=== PATIENT | female | born 1990 | race African-American/Black ===

== ENCOUNTER 2018-06-05 10:09 | Emergency (ER) | payer OTHER ==
[~2018-06-05] VITALS: Ht 152.4 cm; Wt 86.2 kg
--- OUTSIDE RECORDS SUMMARY | 2018-06-05 10:12 | XMS REPORT | Clinical Summary ---
Author Author [facility] Address Unknown Phone Unavailable Care Team Providers Care Sales Producer Name Role Phone Elisabeth Huntleye Wang PCP Allergies No Known Allergies Medications End Date Status Medication Sig Dispensed Refills Start Date Active ibuprofen (ADVIL,MOTRIN) Take 800 mg 0 800 MG tablet by mouth as needed for Pain. Active acetaminophen-codeine Take 1 tablet 0 (TYLENOL #3) 300-30 mg by mouth per tablet every 4 (four) hours as needed for Pain. Active amoxicillin (AMOXIL) 250 Take 250 mg 0 MG capsule by mouth 3 (three) times daily. Active Problems Not on file Social History Date Tobacco Use Types Packs/Day Years Used Current Some Day Smoker Smokeless Tobacco: Never Used Alcohol Use Drinks/Week oz/Week Comments Yes Sex Assigned at Date Recorded Not on file Industry Job Start Date Occupation Not on file Not on file Not on file Travel End Travel History Travel Start No recent travel history available. Last Filed Vital Signs Not on file Plan of Treatment Not on file Results Not on fileafter 06/04/2017 Insurance Payer Benefit Subscriber ID Type Phone Address Plan / Group MEDICAID - MEDICAID MGD MEDICAID xxxxxxxxx Medicaid [employer] Non-Contra cted (Home) [place] [address]
--- OUTSIDE RECORDS SUMMARY | 2018-06-05 10:12 | XMS REPORT ---
Author [facility] Address Unknown Phone Unavailable Care Team Providers Care Vp Informatics Name Role Phone GERMANIA BLANCO Unavailable Unavailable Payers Payer Name Policy Type Policy Number Effective Date Expiration Date Problems This patient has no known problems. Allergies, Adverse Reactions, Alerts Allergy Name Allergy Type Status Severity Reaction(s) Onset Date Inactive Date Treating Clinician Comments No Known Allergies DA Active U 2017-02-12 00:00:00 Medications This patient has no known medications. Results Test Description Test Time Test Comments Text Results Atomic Results Result Comments WET PREP 2016-10-03 03:08:00 WBC WET PREP (BEAKER) (test txoq=067) Many white blood cells seen CLUE CELLS (BEAKER) (test fcnn=848) No clue cells seen YEAST WET PREP (BEAKER) (test knzj=584) No budding yeast seen TRICH WET PREP (BEAKER) (test kozt=154) No Trichomonas seen BACT WET PREP (BEAKER) (test ziar=416) Moderate bacteria seen RAPID STREP A [id number] 01:12:00* Test Item Value Reference Range Comments STREP A ANTIGEN (BEAKER) (test qyow=653) Positive Negative
--- OUTSIDE RECORDS SUMMARY | 2018-06-05 10:12 | XMS REPORT | Continuity of Care Document ---
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 Name Role Phone MD Andrew, Gracie LIMA Unavailable Insurance Providers Payer name Policy type / Coverage type Policy ID Covered constitution party ID Policy [place] [employer] ([employer]IC [facility] [employer] (MEDIC Encounters Encounter Performer Location Date Office Visit Gracie Morales MD [facility] June 21, 2014 Problems Problem Effective Dates Problem Status BACK PAIN, LOW June 21, 2014 Active RASH NOS June 21, 2014 Active Procedures Date Description Comments June 21, 2014 smoking status Never smoker Medications Medication Instructions Start Date Status CYCLOBENZAPRINE HCL 10 MG TABS 1 tablet at night as needed for spasms June 21, 2014 Active MELOXICAM 15 MG TABS 1 tablet daily as needed for pain June 21, 2014 Active TRAMADOL HCL 50 MG TABS 1 tablet every 8 hours as needed for pain June 21, 2014 Active LOTRISONE 1-0.05 % CREA apply to affected area twice daily as needed June 21, 2014 Active Vital Signs Date Description Test Result June 21, 2014 height E&M - 8302-2 HEIGHT 61 in June 21, 2014 weight E&M - 3141-9 WEIGHT 227 lb June 21, 2014 temperature E&M TEMPERATURE 98.3 deg f June 21, 2014 pulse rate E&M - 8867-4 PULSE RATE 84 /min June 21, 2014 blood pressure, systolic - 8480-6 BP SYSTOLIC 127 mm Hg June 21, 2014 blood pressure, diastolic - 8462-4 BP DIASTOLIC 86 mm Hg
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
--- OUTSIDE RECORDS SUMMARY | 2018-06-05 10:12 | XMS REPORT | Summary of Care ---
Author Author MADAI LEE N.P. Organization Unknown Address Unknown Phone Unavailable Care Team Providers Care Um Nurse Name Role Phone MADAI LEE N.P. Unavailable Unavailable ANASTASIA BROWN M.D. Unavailable Unavailable ANASTASIA BROWN MD Unavailable Unavailable MADAI OQUENDO Unavailable Unavailable Unavailable Unavailable Functional Status Name Dates Details Functional status health issues are not documented Status: Name Dates Details Cognitive status health issues are not documented Status: Problems Name Dates Details Tinea capitis (110.0, B35.0) Status: Active Hirsutism (704.1, L68.0) Status: Active Screen for STD (sexually transmitted disease) (V74.5, Z11.3) Status: Active Overweight and obesity (278.02, E66.3) Status: Active Seizure (780.39, R56.9) Status: Active Paranoia (297.1, F22) Status: Active Major depressive disorder, recurrent episode with anxious distress (296.30, F33.9) Status: Active Medications Name Dates Details buPROPion HCl ER (XL) 150 MG Oral Tablet Extended Release 24 Hour Active risperiDONE 0.5 MG Oral Tablet TAKE 1 TABLET BY MOUTH AT BEDTIME * Quantity: 30 Refills: 1 ANASTASIA BROWN M.D. * Start : 28-May-2018 Active traZODone HCl - 50 MG Oral Tablet TAKE 1 TABLET BY MOUTH AT BEDTIME * Quantity: 30 Refills: 1 ANASTASIA BROWN M.D. * Start : 28-May-2018 Active Ketoconazole 2 % External Shampoo APPLY TO AFFECTED AREA(S) ONCE DAILY DIRECTED. * Quantity: 2 Refills: 1 MADAI LEE N.P. * Start : 01-Jun-2018 Active 120 ML Bottle Allergies and Adverse Reactions Name Dates Details No Known Drug Allergies (Allergy) Status: Active Past Medical History Name Dates Details History of anxiety (V11.8, Z86.59) Status: Resolved History of depression (V11.8, Z86.59) Status: Resolved History of diabetes mellitus (V12.29, Z86.39) Status: Resolved History of seizure (V12.49, Z87.898) Status: Resolved Procedures Procedure Dates Details [QLH] CBC (INCLUDES DIFF/PLT) Date: 01-Jun-2018 [QLH] CMP W/EGFR Date: 01-Jun-2018 [QH] LIPID PANEL WITH REFLEX TO DIRECT LDL Date: 01-Jun-2018 [QLH] TSH, 3RD GENERATION W/REFLEX TO FT4 Date: 01-Jun-2018 [QLH] HEMOGLOBIN A1c Date: 01-Jun-2018 [L] UA/M w/rflx Culture, Comp Date: 01-Jun-2018 [QH] HIV AB, HIV 1/2, EIA, WITH REFLEXES Date: 01-Jun-2018 [LH] GC/CT by Amp Det (APTIMA) Date: 01-Jun-2018 [QLH] RPR Date: 01-Jun-2018 [QLH] HEPATITIS C ANTIBODY Date: 01-Jun-2018 [QLH] HEPATITIS B SURFACE ANTIBODY (QUANT) Date: 01-Jun-2018 [QH] HEPATITIS B SURFACE ANTIGEN W/REFL CONFIRM Date: 01-Jun-2018 [QLH] TESTOSTERONE, TOTAL Date: 01-Jun-2018 [QLH] DHEA SULFATE Date: 01-Jun-2018 [QL] FSH AND LH Date: 01-Jun-2018 [QLH] ESTRADIOL Date: 01-Jun-2018 [QLH] PROGESTERONE Date: 01-Jun-2018 History of No history of surgery Completed Immunization Name Dates Details Immunizations not documented Family History Name Dates Details Family history of diabetes mellitus (V18.0, Z83.3) Status: Active Family history of malignant neoplasm of breast (V16.3, Z80.3) Status: Active Name Dates Details Family history of essential hypertension (V17.49, Z82.49) Status: Active Family history of diabetes mellitus (V18.0, Z83.3) Status: Active Family history of malignant neoplasm of breast (V16.3, Z80.3) Status: Active Social History Name Dates Details Unknown if ever smoked Vital Signs Date Test Result Details [id number] BP Systolic 107 mm[Hg] Status: Comments: Location: LUE; Position: Sitting BP Diastolic 75 mm[Hg] Status: Comments: Location: LUE; Position: Sitting Height 60 in Status: Weight 232.375 lb Status: Body Mass Index Calculated 45.38 kg/m2 Status: Body Surface Area Calculated 1.99 m2 Status: Temperature 98.1 f Status: Comments: Method: Oral Heart Rate 99 /min Status: Comments: Location: L Brachial Artery; Quality: Normal Respiration Rate 18 /min Status: Comments: Quality: Normal O2 SAT 99 % Status: Comments: Source: RA Physical Findings 0 Status: Comments: Alcohol Screen - How many times in the past yr have you had 5 (for M) or 4 (for F) or 4 (for all > 65yrs) or more drinks in a day? [id number] BP Systolic 122 mm[Hg] Status: Comments: Location: LUE; Position: Sitting BP Diastolic 78 mm[Hg] Status: Comments: Location: LUE; Position: Sitting Height 60.63 in Status: Weight 230.25 lb Status: Body Mass Index Calculated 44.04 kg/m2 Status: Body Surface Area Calculated 2 m2 Status: Temperature 98.7 f Status: Comments: Method: Oral Heart Rate 91 /min Status: Comments: Location: L Brachial Artery; Quality: Normal Respiration Rate 18 /min Status: Comments: Quality: Normal O2 SAT 99 % Status: Comments: Source: RA Physical Findings 0 Status: Comments: Alcohol Screen - How many times in the past yr have you had 5 (for M) or 4 (for F) or 4 (for all > 65yrs) or more drinks in a day? Physical Findings 26 Status: Comments: PHQ-9 Adult Depression Screening Results Date Description Value Details Results not documented Plan of Care Name Dates Details Planned Observations Planned Goals not documented Planned Encounters Neurology Referral Appointment; MADAI LEE NP On: 15-Jun-2018 9:00 Appointment; ANASTASIA BROWN M.D. On: 18-Jun-2018 12:30 Appointment; MARY ANNE WEBER LCSW On: 24-Jun-2018 8:00 Interventions Provided Medication Changes* Ketoconazole 2 % External Shampoo - Start Labs/Procedures/Imaging* [L] UA/M w/rflx Culture, Comp; To Be Done: 01 Jun 2018 * [LH] GC/CT by Amp Det (APTIMA); To Be Done: 01 Jun 2018 * [QH] HEPATITIS B SURFACE ANTIGEN W/REFL CONFIRM; To Be Done: 01 Jun 2018 * [QH] HIV AB, HIV 1/2, EIA, WITH REFLEXES; To Be Done: 01 Jun 2018 * [QH] LIPID PANEL WITH REFLEX TO DIRECT LDL; To Be Done: 01 Jun 2018 * [QL] FSH AND LH; To Be Done: 01 Jun 2018 * [QLH] CBC (INCLUDES DIFF/PLT); To Be Done: 01 Jun 2018 * [QLH] CMP W/EGFR; To Be Done: 01 Jun 2018 * [QLH] DHEA SULFATE; To Be Done: 01 Jun 2018 * [QLH] ESTRADIOL; To Be Done: 01 Jun 2018 * [QLH] HEMOGLOBIN A1c; To Be Done: 01 Jun 2018 * [QLH] HEPATITIS B SURFACE ANTIBODY (QUANT); To Be Done: 01 Jun 2018 * [QLH] HEPATITIS C ANTIBODY; To Be Done: 01 Jun 2018 * [QLH] PROGESTERONE; To Be Done: 01 Jun 2018 * [QLH] RPR; To Be Done: 01 Jun 2018 * [QLH] TESTOSTERONE, TOTAL; To Be Done: 01 Jun 2018 * [QLH] TSH, 3RD GENERATION W/REFLEX TO FT4; To Be Done: 01 Jun 2018 Plan* 1. well woman exam/ STD screening; * - ordered routine labs; * - no pap smear due to last pap was 2 month ago; * 2. Hirsutism: * - ordered hormonal panel; * 3. seizure; * - referred to neurologist; * 4. tinea capitis; * - start patient on Ketoconazole shampoo; * Mis; f/u with provider in 2 weeks for lab review and hirsutism treatment; Instructions Name Dates Details Instructions not documented Encounters Appointment; ANASTASIA BROWN M.D. Encounter Diagnosis: Problem not documented On: 28-May-2018 15:00 Appointment; MADAI LEE NP Encounter Diagnosis: Problem not documented On: 01-Jun-2018 10:20
[2018-06-05] MEDS ORDERED: FENTANYL CITRATE/PF 100MCG/2 ML INJ IV ONE (11:30)
--- NOTE | 2018-06-05 11:37 | Diagnostic Imaging Report ---
EXAMINATION: CXR 2 VIEW - HOPD INDICATION: COMPARISON: None FINDINGS: PA and lateral views TUBES and LINES: None. LUNGS: Lungs are well inflated. Lungs are clear. There is no evidence of pneumonia or pulmonary edema. PLEURA: No pleural effusion or pneumothorax. HEART AND MEDIASTINUM: The cardiomediastinal silhouette is unremarkable. BONES AND SOFT TISSUES: No acute osseous lesion. Soft tissues are unremarkable. UPPER ABDOMEN: No free air under the diaphragm. IMPRESSION: No acute thoracic abnormality. Signed by: Dr. Natividad Wesley M.D. on 06/05/2018 11:34 AM
[2018-06-05] MEDS ORDERED: NAPROSYN500 MG PO (11:46)
[2018-06-05] MEDS ORDERED: TYLENOL WITH C1 EACH PO (11:59)
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
--- NOTE | 2018-06-05 12:02 | NUR ---
NOW WANTING TO XRAY WRIST AND PLACE SPLINT. XRAY NOTIFIED
--- NOTE | 2018-06-05 13:17 | NUR ---
COCKUP SPLINT ON LEFT WRIST BY TECH. +CAP REFILL AND RADIAL PULSE BEFORE AND AFTER PLACEMENT.
--- NOTE | 2018-06-05 13:31 | Diagnostic Imaging Report ---
LEFT WRIST X-RAY - 3 VIEWS HISTORY: Left wrist pain for 3 days COMPARISON: None available. FINDINGS: Bones: No acute displaced fracture. Osseous alignment is within normal limits. Joints: The joint spaces are well-maintained. Soft tissues: The soft tissues appear unremarkable. IMPRESSION: No acute radiographic abnormality. Signed by: Dr. Natividad Wesley M.D. on 06/05/2018 1:28 PM
== END 2018-06-05 13:22 | disposition home or self-care (01) ==
LOC: FSED 10:09
DX: R07.89 Other chest pain (principal); G40.909 Epilepsy, unspecified, not intractable, without status epilepticus; F41.9 Anxiety disorder, unspecified; F32.9 Major depressive disorder, single episode, unspecified; E66.01 Morbid (severe) obesity due to excess calories
CPT/HCPCS: 71046; 80053; 81003; 81025; 84484; 85025; 85379; 93005; 99284